=== PATIENT | female | born 1995 | race Two or more races ===

== ENCOUNTER 2016-08-29 02:00 | Emergency (ER) | payer MEDICAID ==
[~2016-08-29] VITALS: Ht 167.6 cm; Wt 63.5 kg
[~2016-08-29 02:00] MED LIST: ACETAMINOPHEN-1 EAC1 ORAL; CIPRO500 MG PO; FLEET ENEMA133 ML RECTAL; IBUPROFEN600 MG ORAL; KEFLEX500 MG ORAL; NKM; NORCO 5/3251 TAB ORAL; RANITIDINE HCL150 MG ORAL; ZOFRAN ODT4 MG ORAL; ZOFRAN8 MG ORAL
[2016-08-29] MEDS ORDERED: NKM (02:17)
[2016-08-29] MEDS ORDERED: Tubing IV Cassette IV ONE ×2 (02:28→05:12)
[2016-08-29] MEDS ORDERED: Morphine Sulfate 4mg/ml Inj IVP ONE ×2 (02:30→03:00)
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
[2016-08-29 02:39] LABS: APPEARANCE,URINE CLEAR; KETONES,URINE NEGATIVE (NEGATIVE); LEUKOCYTE ESTERASE ,URINE NEGATIVE (NEGATIVE); NITRITE,URINE NEGATIVE (NEGATIVE); PH,URINE 6.5 (4.5-8.0); PROTEIN,URINE NEGATIVE (NEGATIVE); UROBILINOGEN,URINE NORMAL MG/DL (0.0-1.0)
[2016-08-29 02:40] LABS: BASOPHILS % (AUTO) 1.3 % (0.0-2.0); EOSINOPHILS % (AUTO) 3.3 % (0.0-3.0); LYMPHOCYTES % (AUTO) 46.4 % (20.0-45.0); MEAN CORPUSCULAR HEMOGLOBIN 32.4 PG (27.0-31.0); MEAN CORPUSCULAR HGB CONC 34.5 G/DL (32.0-36.0); MEAN CORPUSCULAR VOLUME 94 FL (80-99); MEAN PLATELET VOLUME 6.8 FL (6.5-10.1); MONOCYTES % (AUTO) 9.1 % (1.0-10.0); PLATELET COUNT 269 K/UL (150-450); RED BLOOD COUNT 4.25 M/UL (4.20-5.40); WHITE BLOOD COUNT 8.3 K/UL (4.8-10.8)
[2016-08-29 02:55] LABS: ALANINE AMINOTRANSFERASE 15 U/L (3-33); ALBUMIN/GLOBULIN RATIO 1.3 (1.0-2.7); ANION GAP 19 (5-15); ASPARTATE AMINO TRANSFERASE 18 U/L (5-40); CALCIUM 9.5 mg/dL (8.6-10.2); CARBON DIOXIDE 23 mEQ/L (20-30); CHLORIDE 102 mEQ/L (98-107); CREATININE 1.1 mg/dL (0.5-0.9); GLOMERULAR FILTRATION RATE > 60 mL/min (>60); HEMOLYSIS 6; LIPASE 47 U/L (< 60); POTASSIUM 3.6 mEQ/L (3.4-4.9); SODIUM 144 mEQ/L (135-145); TOTAL PROTEIN 7.4 g/dL (6.6-8.7)
[2016-08-29] MEDS ORDERED: HYDROmorphone 1mg/ml Carpuject IVP ONE ×2 (03:30→04:00)
[2016-08-29] MEDS ORDERED: Fleet's Enema 133ml RECTAL ONE (03:30)
[2016-08-29 04:05] VITALS: BP 113/76
[2016-08-29] MEDS ORDERED: Pantoprazole Inj IVP ONE (04:15)
[2016-08-29 04:48] VITALS: BP 93/43
[2016-08-29] MEDS ORDERED: Ketorolac 30mg Inj IV ONE (05:15)
[2016-08-29 05:55] VITALS: BP 107/57
[2016-08-29 05:56] VITALS: BP 107/57
--- NOTE | 2016-08-29 09:39 | Diagnostic Imaging Report ---
Indication: Abdominal pain Technique: Spiral acquisitions obtained through the abdomen and pelvis. No oral contrast utilized, per emergency room physician request No IV contrast utilized, per referring physician request.. Multiplanar reconstructions were generated. Total dose length product 729 mGycm. CTDIvol(s) 13 mGy Comparison: 09/06/2015 Findings: Lack of enteric contrast limits assessment of the GI tract. The appendix is unremarkable. There is equivocal mild diverticulosis, better demonstrated previously. No evidence of diverticulitis diverticulitis. No small bowel distention. No free or loculated intraperitoneal air or fluid is evident. The distal unremarkable. The stomach is distended with food. The duodenum is unremarkable. There is questionable mural gas in the cecum. However, this is probably an artifactual finding, as it is only apparent in the dependent portion and therefore most likely represents air trapped at the interface between the feces and the mucosal surface. Lack of IV contrast limits assessment of solid organs. The gallbladder, bile ducts, liver, pancreas, spleen, adrenals, kidneys are unremarkable. No retroperitoneal or mesenteric mass or adenopathy. The right ovary is prominent, measuring 4 cm in length. No pelvic mass or adenopathy. The included lung bases are clear. The bones are unremarkable. Impression: Doubt acute process. Apparent focal pneumatosis of the cecum is most likely artifactual. Correlate with clinical findings Otherwise essentially unremarkable Very questionable colonic diverticulosis This agrees with the preliminary interpretation provided overnight by [facility] teleradiology service. The CT scanner at [facility] is accredited by the [employer] and the scans are performed using protocols designed to limit radiation exposure to as low as reasonably achievable to attain images of sufficient resolution adequate for diagnostic evaluation.
== END 2016-08-29 06:13 | disposition short-term general hospital (02) ==
LOC: EMR 02:30
DX: R10.12 Left upper quadrant pain (principal); M54.9 Dorsalgia, unspecified; R11.2 Nausea with vomiting, unspecified; F32.9 Major depressive disorder, single episode, unspecified
CPT/HCPCS: 36415; 74176; 80053; 81003; 81025; 83690; 85025; 96360; 96374; 96375; 99285; C9113; J1170; J1885; J2270; J2405

== ENCOUNTER 2016-09-03 22:24 | Emergency (ER) | payer MEDICAID ==
[~2016-09-03] VITALS: Ht 165.1 cm; Wt 61.2 kg
[2016-09-03 22:43] VITALS: BP 126/73
[2016-09-03] MEDS ORDERED: Dicyclomine HCl 10mg/5ml oral soln ORAL ONE (23:00)
[2016-09-03] MEDS ORDERED: Lidocaine 2% Visc 15ml soln ORAL ONE (23:00)
[2016-09-03 23:30] VITALS: BP_SYST 114; BP_SYST 115; BP_SYST 122; BP_DIAS 71; BP_DIAS 82; BP_DIAS 83
[2016-09-03 23:56] LABS: APPEARANCE,URINE CLEAR; KETONES,URINE NEGATIVE (NEGATIVE); LEUKOCYTE ESTERASE ,URINE 1+ (NEGATIVE); NITRITE,URINE POSITIVE (NEGATIVE); PH,URINE 7 (4.5-8.0); PROTEIN,URINE NEGATIVE (NEGATIVE); UROBILINOGEN,URINE NORMAL MG/DL (0.0-1.0)
[2016-09-04 00:01] LABS: BACTERIA,URINE MANY /HPF; SQUAMOUS EPITHELIAL CELL,UR MODERATE /LPF (NONE/OCC)
[2016-09-04 00:27] LABS: BASOPHILS % (AUTO) 0.8 % (0.0-2.0); EOSINOPHILS % (AUTO) 0.6 % (0.0-3.0); LYMPHOCYTES % (AUTO) 14.8 % (20.0-45.0); MEAN CORPUSCULAR HEMOGLOBIN 31.9 PG (27.0-31.0); MEAN CORPUSCULAR HGB CONC 32.4 G/DL (32.0-36.0); MEAN CORPUSCULAR VOLUME 99 FL (80-99); MEAN PLATELET VOLUME 6.6 FL (6.5-10.1); MONOCYTES % (AUTO) 9.9 % (1.0-10.0); PLATELET COUNT 211 K/UL (150-450); RED CELL DISTRIBUTION WIDTH 11.9 % (11.6-14.8); WHITE BLOOD COUNT 6.7 K/UL (4.8-10.8)
[2016-09-04 00:34] LABS: TROPONIN I < 0.30 ng/mL (<=0.30)
[2016-09-04 00:37] LABS: ALANINE AMINOTRANSFERASE 11 U/L (3-33); ALBUMIN/GLOBULIN RATIO 1.5 (1.0-2.7); ANION GAP 15 (5-15); ASPARTATE AMINO TRANSFERASE 16 U/L (5-40); CALCIUM 9.4 mg/dL (8.6-10.2); CARBON DIOXIDE 26 mEQ/L (20-30); CHLORIDE 96 mEQ/L (98-107); CREATININE 0.8 mg/dL (0.5-0.9); GLOMERULAR FILTRATION RATE > 60 mL/min (>60); HEMOLYSIS 1; POTASSIUM 4.3 mEQ/L (3.4-4.9); SODIUM 137 mEQ/L (135-145); TOTAL PROTEIN 7.6 g/dL (6.6-8.7)
[2016-09-04 00:47] LABS: CKMB < 1.5 ng/mL (< 3.8)
[2016-09-04 01:34] VITALS: BP 115/46
[2016-09-04] MEDS ORDERED: cefTRIAXone 1 GM in NS 55 ML IVPB ONE (01:45)
[2016-09-04] MEDS ORDERED: Metoclopramide 10mg/2ml Inj IVP ONE (02:00)
[2016-09-04] MEDS ORDERED: KEFLEX500 MG ORAL (02:41)
[2016-09-04] MEDS ORDERED: IBUPROFEN600 MG ORAL (02:41)
[2016-09-04 02:50] VITALS: BP 115/46
--- NOTE | 2016-09-04 14:26 | Diagnostic Imaging Report ---
Indication: SOB Technique: One view of the chest Comparison: September 06, 2015 Findings: Lungs and pleural spaces are clear. Heart size is normal. No significant change Impression: No acute process
--- NOTE | 2016-09-04 20:13 | Emergency Room Report ---
History of Present Illness General Chief Complaint: Headache Source: Patient Present Illness HPI Patient is a 21-year-old female who presented after increased headache and generalized pain. Patient recently been seen and treated at [facility] for episode of colitis. Patient had a not been taking any medications apart from Zofran. She denied any neck stiffness. She had subjective fever. She denied any cough or sore throat. She had been having some generalized abdominal pain. She reported having increased dysuria. She stated this felt similar to prior urinary tract infections. Allergies: Coded Allergies: No Known Allergies (Unverified , 12/28/12) Patient History Past Medical History: see triage record Last Menstrual Period: 08/02/16 Now: No Reviewed Nursing Documentation: PMH: Agreed, PSxH: Agreed Nursing Documentation-PMH Hx Neurological Problems: No Review of Systems All Other Systems: negative except mentioned in HPI Physical Exam Vital Signs Date Time Temp Pulse Resp B/P Pulse Ox O2 Delivery O2 Flow Rate FiO2 09/03/16 22:33 100.0 120 17 126/73 99 Room Air Sp02 EP Interpretation: reviewed, normal General Appearance: normal inspection, well appearing, no apparent distress, alert, GCS 15 Head: atraumatic ENT: normal ENT inspection, hearing grossly normal, normal voice Neck: normal inspection, full range of motion, supple, no bony tend Respiratory: normal inspection, lungs clear, normal breath sounds, no respiratory distress, no retraction, no wheezing Cardiovascular #1: regular rate, rhythm, no edema Gastrointestinal: normal inspection, normal bowel sounds, non tender, soft, no guarding, no hernia Genitourinary: no CVA tenderness Musculoskeletal: normal inspection, back normal, normal range of motion Neurologic: normal inspection, alert, oriented x3, responsive, online advertising analyst III-XII nml as tested, speech normal Psychiatric: normal inspection, judgement/insight normal, mood/affect normal Skin: normal inspection, normal color, no rash Medical Decision Making Diagnostic Impression: Primary Impression: Urinary tract infection ER Course Patient presented for dysuria. Differential diagnosis included was not limited to appendicitis, urinary tract infection, pelvic inflammatory disease, urethritis, herpes among others. Patient appears to have benign abdominal exam. Patient was given ibuprofen for fever. She was given Reglan for nausea and headache. Patient started on IV fluids as well as given antibiotics. Laboratory testing was notable for normal white blood count. The urinalysis showed evidence of mild urinary tract infection. The patient is advised to follow up with primary care doctor in 1-2 days. Patient is advised to return if any worsening condition or if any changes in status that are concerning. Labs Test 09/03/16 23:11 09/04/16 00:00 Urine Color Pale yellow Urine Appearance Clear Urine pH 7 (4.5-8.0) Urine Specific [place] 1.010 (1.005-1.035) Urine Protein Negative (NEGATIVE) Urine Glucose (UA) Negative (NEGATIVE) Urine Ketones Negative (NEGATIVE) Urine Occult Blood 2+ (NEGATIVE) Urine Nitrite Positive (NEGATIVE) Urine Bilirubin Negative (NEGATIVE) Urine Urobilinogen Normal MG/DL (0.0-1.0) Urine Leukocyte Esterase 1+ (NEGATIVE) Urine RBC 2-4 /HPF (0 - 2) Urine WBC 2-4 /HPF (0 - 2) Urine Squamous Epithelial Cells Moderate /LPF (NONE/OCC) Urine Bacteria Many /HPF (NONE) Urine HCG, Qualitative Negative White Blood Count 6.7 K/UL (4.8-10.8) Red Blood Count 3.80 M/UL (4.20-5.40) Hemoglobin 12.1 G/DL (12.0-16.0) Hematocrit 37.5 % (37.0-47.0) Mean Corpuscular Volume 99 FL (80-99) Mean Corpuscular Hemoglobin 31.9 PG (27.0-31.0) Mean Corpuscular Hemoglobin Concent 32.4 G/DL (32.0-36.0) Red Cell Distribution Width 11.9 % (11.6-14.8) Platelet Count 211 K/UL (150-450) Mean Platelet Volume 6.6 FL (6.5-10.1) Neutrophils (%) (Auto) 74.0 % (45.0-75.0) Lymphocytes (%) (Auto) 14.8 % (20.0-45.0) Monocytes (%) (Auto) 9.9 % (1.0-10.0) Eosinophils (%) (Auto) 0.6 % (0.0-3.0) Basophils (%) (Auto) 0.8 % (0.0-2.0) Sodium Level 137 mEQ/L (135-145) Potassium Level 4.3 mEQ/L (3.4-4.9) Chloride Level 96 mEQ/L (98-107) Carbon Dioxide Level 26 mEQ/L (20-30) Anion Gap 15 (5-15) Blood Urea Nitrogen 19 mg/dL (7-23) Creatinine 0.8 mg/dL (0.5-0.9) Estimat Glomerular Filtration Rate > 60 mL/min (>60) Glucose Level 111 mg/dL (74-106) Lactic Acid Level 1.10 mmol/L (0.66-2.22) Calcium Level 9.4 mg/dL (8.6-10.2) Total Bilirubin 0.5 mg/dL (0.0-1.2) Aspartate Amino Transf (AST/SGOT) 16 U/L (5-40) Alanine Aminotransferase (ALT/SGPT) 11 U/L (3-33) Alkaline Phosphatase 48 U/L (35-104) Total Creatine Kinase 79 U/L (26-140) Creatine Kinase MB < 1.5 ng/mL (< 3.8) Creatine Kinase MB Relative Index Troponin I < 0.30 ng/mL (<=0.30) Total Protein 7.6 g/dL (6.6-8.7) Albumin 4.6 g/dL (3.5-5.2) Globulin 3.0 g/dL Albumin/Globulin Ratio 1.5 (1.0-2.7) Last Vital Signs Date Time Temp Pulse Resp B/P Pulse Ox O2 Delivery O2 Flow Rate FiO2 09/04/16 02:50 100.5 116 17 115/46 98 Room Air 117 122 Status: improved Disposition: HOME, SELF-CARE Condition: Stable Scripts Ibuprofen* (MOTRIN*) 600 Mg Tablet 600 MG ORAL Q8H Y for For Pain, #30 TAB 0 Refills Prov: Percy Brady 09/04/16 Cephalexin* (KEFLEX*) 500 Mg Capsule 500 MG ORAL Q6H, #28 CAP 0 Refills Prov: Percy Brady 09/04/16 Patient Instructions: Urinary Tract Infection, [id number] Percy Brady Sep 04, 2016 20:13
--- NOTE | 2016-09-04 23:18 | Cardiology Report ---
APPROVED REPORT EKG Measurement Heart [id number] Sinus tachycardia Otherwise normal ECG
== END 2016-09-04 02:50 | disposition home or self-care (01) ==
LOC: EMR 22:57
DX: N39.0 Urinary tract infection, site not specified (principal); R51 Headache; R50.9 Fever, unspecified
CPT/HCPCS: 36415; 71010; 80053; 81003; 81025; 82550; 82553; 83605; 84484; 85025; 87086; 87181; 93005; 96360; 96374; 96375; 99284; J0696; J2765

== ENCOUNTER 2017-06-02 18:13 | Emergency (ER) | payer OTHER, MEDICAID ==
[~2017-06-02] VITALS: Ht 165.1 cm; Wt 59.0 kg
[2017-06-02] MEDS ORDERED: Ketorolac 30mg Inj IV ONE (18:30)
[2017-06-02] MEDS ORDERED: Morphine Sulfate 2mg/ml Inj IVP ONE (19:15)
[2017-06-02 19:30] LABS: APPEARANCE,URINE CLEAR; BILIRUBIN, URINE NEGATIVE (NEGATIVE); COLOR,URINE PALE YELLOW; GLUCOSE, URINE (UA) NEGATIVE (NEGATIVE); KETONES,URINE 1+ (NEGATIVE); LEUKOCYTE ESTERASE ,URINE NEGATIVE (NEGATIVE); NITRITE,URINE NEGATIVE (NEGATIVE); PH,URINE 7 (4.5-8.0); PROTEIN,URINE NEGATIVE (NEGATIVE); UROBILINOGEN,URINE NORMAL MG/DL (0.0-1.0)
[2017-06-02 19:41] LABS: ANION GAP 8 mmol/L (5-15); BLOOD UREA NITROGEN 17 mg/dL (7-18); CALCIUM 8.8 MG/DL (8.5-10.1); CARBON DIOXIDE 28 MMOL/L (21-32); CHLORIDE 103 MMOL/L (98-107); CREATININE 0.7 MG/DL (0.55-1.30); POTASSIUM 3.9 MMOL/L (3.5-5.1); SODIUM 139 MMOL/L (136-145)
[2017-06-02 19:45] LABS: ALANINE AMINOTRANSFERASE 13 U/L (12-78); ALBUMIN 4.7 G/DL (3.4-5.0); ALBUMIN/GLOBULIN RATIO 1.2 (1.0-2.7); ALKALINE PHOSPHATASE 47 U/L (46-116); ASPARTATE AMINO TRANSFERASE 12 U/L (15-37); BILIRUBIN,TOTAL 0.5 MG/DL (0.2-1.0)
[2017-06-02 19:49] LABS: HEMATOCRIT 40.7 % (37.0-47.0); HEMOGLOBIN 13.9 G/DL (12.0-16.0); LYMPHOCYTES % (AUTO) 10.5 % (20.0-45.0); MEAN CORPUSCULAR VOLUME 94 FL (80-99); MONOCYTES % (AUTO) 11.8 % (1.0-10.0); NEUTROPHILS % (AUTO) 75.7 % (45.0-75.0); PLATELET COUNT 251 K/UL (150-450); RED BLOOD COUNT 4.35 M/UL (4.20-5.40); RED CELL DISTRIBUTION WIDTH 10.7 % (11.6-14.8)
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
[2017-06-02] MEDS ORDERED: Morphine Sulfate 4mg/ml Inj IVP ONE (20:15)
[2017-06-02 21:38] VITALS: BP 117/75
--- NOTE | 2017-06-03 19:58 | Diagnostic Imaging Report ---
Indication: Abdominal pain Technique: CT of the abdomen and pelvis utilizing automated exposure control without intravenous or oral contrast. CT dose: Total DLP 633.43 mGycm; CTDI vol 12.33 mGy Comparison: 08/29/2016 Findings: Please note that evaluation of the abdominal and pelvic viscera is limited without the use of intravenous and oral contrast. Within these limitations, the following observations are made: There is minimal dependent atelectatic change in the peripheral right lower lobe. Remainder of the imaged lung bases are clear. Heart size is within normal limits. There is no pericardial effusion. Noncontrast evaluation of the liver, spleen, adrenal glands and pancreas is grossly unremarkable. There is no evidence of urinary tract stones or hydronephrosis bilaterally. Bladder is unremarkable in appearance. Probable cystic right adnexa. Fluid noted within the endometrial canal, considered physiologic in a reproductive age female. There is no bowel obstruction. No free intraperitoneal air or fluid. Appendix is retrocecal in location. Air is noted within the appendiceal lumen. There is no periappendiceal fat stranding. There is a tiny fat-containing umbilical hernia. There are some prominent mesenteric lymph nodes in the right lower quadrant. Abdominal aorta is normal in caliber. No acute osseous abnormality is seen. Impression: Limited exam without intravenous or oral contrast. Within these limitations: * Multiple prominent mesenteric lymph nodes noted in the right lower quadrant. Findings may be reflective of a mesenteric adenitis in the appropriate clinical setting. No evidence of appendicitis. Additional findings as above. This corresponds with the [facility] preliminary report. The CT scanner at [facility] is accredited by the [employer] and the scans are performed using protocols designed to limit radiation exposure to as low as reasonably achievable to attain images of sufficient resolution adequate for diagnostic evaluation.
== END 2017-06-02 21:45 | disposition home or self-care (01) ==
LOC: EMR 20:08
DX: R10.9 Unspecified abdominal pain (principal); Z87.442 Personal history of urinary calculi; Z98.890 Other specified postprocedural states
CPT/HCPCS: 36415; 74176; 80053; 81003; 81025; 83690; 85025; 96361; 96374; 96375; 96376; 99284; J1885; J2270; J2405

== ENCOUNTER 2017-08-08 00:39 | Emergency (ER) | payer MEDICAID, OTHER ==
[~2017-08-08] VITALS: Ht 165.1 cm; Wt 63.5 kg
[2017-08-08] MEDS ORDERED: HYDROmorphone 1mg/ml Carpuject IVP ONE ×2 (01:00→03:30)
[2017-08-08] MEDS ORDERED: cefTRIAXone 1 GM in NS 55 ML IVPB ONE (01:00)
[2017-08-08] MEDS ORDERED: Acetaminophen 500mg (ES) tab ORAL ONE (01:00)
[2017-08-08 01:15] LABS: APPEARANCE,URINE SLIGHTLY CLOUDY; BILIRUBIN, URINE NEGATIVE (NEGATIVE); COLOR,URINE PALE YELLOW; GLUCOSE, URINE (UA) 3+ (NEGATIVE); KETONES,URINE NEGATIVE (NEGATIVE); LEUKOCYTE ESTERASE ,URINE 1+ (NEGATIVE); NITRITE,URINE NEGATIVE (NEGATIVE); PH,URINE 8 (4.5-8.0); PROTEIN,URINE 1+ (NEGATIVE); UROBILINOGEN,URINE NORMAL MG/DL (0.0-1.0)
[2017-08-08 01:31] LABS: BASOPHILS % (AUTO) 0.5 % (0.0-2.0); EOSINOPHILS % (AUTO) 0.1 % (0.0-3.0); HEMATOCRIT 34.2 % (37.0-47.0); HEMOGLOBIN 12.2 G/DL (12.0-16.0); LYMPHOCYTES % (AUTO) 5.5 % (20.0-45.0); MEAN CORPUSCULAR VOLUME 94 FL (80-99); MONOCYTES % (AUTO) 9.7 % (1.0-10.0); NEUTROPHILS % (AUTO) 84.2 % (45.0-75.0); PLATELET COUNT 186 K/UL (150-450); RED BLOOD COUNT 3.64 M/UL (4.20-5.40); RED CELL DISTRIBUTION WIDTH 10.2 % (11.6-14.8); WHITE BLOOD COUNT 9.3 K/UL (4.8-10.8)
[2017-08-08 01:41] LABS: ANION GAP 8 mmol/L (5-15); BLOOD UREA NITROGEN 6 mg/dL (7-18); CALCIUM 8.6 MG/DL (8.5-10.1); CARBON DIOXIDE 25 MMOL/L (21-32); CHLORIDE 105 MMOL/L (98-107); CREATININE 0.9 MG/DL (0.55-1.30); POTASSIUM 3.3 MMOL/L (3.5-5.1); SODIUM 138 MMOL/L (136-145)
[2017-08-08 01:47] VITALS: BP 118/71
--- NOTE | 2017-08-08 02:08 | Emergency Room Report ---
History of Present Illness General Chief Complaint: Back Pain-No Injury Source: Patient Present Illness HPI This a 22-year-old female with a history of UTI/polynephritis. She presents with chief complaint of right flank pain and fever. She also has urinary frequency and urgency. She had the same symptoms this morning and went to [place]. She was diagnosed with a urinary tract infection. Blood work was done. She'll receive a dose of antibiotics and discharged on antibiotics. She came back tonight because fever went up. Also with severe pain 10 out of 10. No nausea no vomiting. Allergies: Coded Allergies: TRAMADOL (Verified Allergy, Unknown, 08/08/17) Patient History Past Medical History: see triage record, old chart reviewed Past Surgical History: other Pertinent Family History: none Social History: Denies: smoking Last Menstrual Period: Jul 18 Now: No Immunizations: other Reviewed Nursing Documentation: PMH: Agreed, PSxH: Agreed Nursing Documentation-PMH Hx Neurological Problems: No Review of Systems Constitutional: Reports: fever Eye: Denies: eye pain, blurred vision ENT: Denies: ear pain, nose congestion, throat swelling Respiratory: Denies: cough, shortness of breath Cardiovascular: Denies: chest pain, palpitations Gastrointestinal: Denies: abdominal pain, diarrhea, nausea, vomiting Genitourinary: Reports: dysuria, frequency Musculoskeletal: Reports: back pain, Denies: joint pain Skin: Denies: rash Neurological: Reports: headache, Denies: numbness Endocrine: Denies: increased thirst, increased urine Hematologic/Lymphatic: Denies: easy bruising All Other Systems: negative except mentioned in HPI Physical Exam Vital Signs Date Time Temp Pulse Resp B/P (MAP) Pulse Ox O2 Delivery O2 Flow Rate FiO2 08/08/17 00:42 101.6 128 18 115/67 99 Room Air 101.7 vitals with fever Sp02 EP Interpretation: reviewed, normal General Appearance: no apparent distress, alert, other - Ill-appearing Head: normocephalic, atraumatic Eyes: bilateral eye PERRL, bilateral eye EOMI ENT: hearing grossly normal, normal pharynx Neck: full range of motion, supple, no meningismus Respiratory: chest non-tender, lungs clear, normal breath sounds Cardiovascular #1: regular rate, rhythm, no murmur, tachycardia Gastrointestinal: normal bowel sounds, non tender, no mass, no organomegaly, no bruit, non-distended Genitourinary: CVA tenderness (R) Musculoskeletal: back normal, gait/station normal, normal range of motion Neurologic: alert, oriented x3 Psychiatric: mood/affect normal Skin: warm/dry Medical Decision Making Diagnostic Impression: Primary Impression: Pyelonephritis Additional Impression: Sepsis Qualified Codes: A41.9 - Sepsis, unspecified organism ER Course This patient presents with pyelonephritis and early sepsis/SIRS response. Because of her continual pain, I did a CT scan to rule out retained stone. There is no evidence of any stone. Because she failed outpatient antibiotics, will transfer to [place] via [facility]. I discussed the case with Dr. Castelan, who accepted patient for transfer. . Laboratory Tests Test 08/08/17 00:48 08/08/17 01:18 08/08/17 02:10 Urine Color Pale yellow Urine Appearance Slightly cloudy Urine pH 8 (4.5-8.0) Urine Specific [place] 1.010 (1.005-1.035) Urine Protein 1+ (NEGATIVE) H Urine Glucose (UA) 3+ (NEGATIVE) H Urine Ketones Negative (NEGATIVE) Urine Occult Blood 2+ (NEGATIVE) H Urine Nitrite Negative (NEGATIVE) Urine Bilirubin Negative (NEGATIVE) Urine Urobilinogen Normal MG/DL (0.0-1.0) Urine Leukocyte Esterase 1+ (NEGATIVE) H Urine RBC 2-4 /HPF (0 - 2) H Urine WBC 5-10 /HPF (0 - 2) H Urine Squamous Epithelial Cells Many /LPF (NONE/OCC) H Urine Bacteria Moderate /HPF (NONE) H Urine HCG, Qualitative Negative White Blood Count 9.3 K/UL (4.8-10.8) Red Blood Count 3.64 M/UL (4.20-5.40) L Hemoglobin 12.2 G/DL (12.0-16.0) Hematocrit 34.2 % (37.0-47.0) L Mean Corpuscular Volume 94 FL (80-99) Mean Corpuscular Hemoglobin 33.5 PG (27.0-31.0) H Mean Corpuscular Hemoglobin Concent 35.7 G/DL (32.0-36.0) Red Cell Distribution Width 10.2 % (11.6-14.8) L Platelet Count 186 K/UL (150-450) Mean Platelet Volume 6.8 FL (6.5-10.1) Neutrophils (%) (Auto) 84.2 % (45.0-75.0) H Lymphocytes (%) (Auto) 5.5 % (20.0-45.0) L Monocytes (%) (Auto) 9.7 % (1.0-10.0) Eosinophils (%) (Auto) 0.1 % (0.0-3.0) Basophils (%) (Auto) 0.5 % (0.0-2.0) Sodium Level 138 MMOL/L (136-145) Potassium Level 3.3 MMOL/L (3.5-5.1) L Chloride Level 105 MMOL/L (98-107) Carbon Dioxide Level 25 MMOL/L (21-32) Anion Gap 8 mmol/L (5-15) Blood Urea Nitrogen 6 mg/dL (7-18) L Creatinine 0.9 MG/DL (0.55-1.30) Estimat Glomerular Filtration Rate > 60 mL/min (>60) Glucose Level 161 MG/DL (74-106) H Calcium Level 8.6 MG/DL (8.5-10.1) Lactic Acid Level 1.50 mmol/L (0.66-2.22) Lab Results Impression labs unremarkable CT/MRI/US Diagnostic Results CT/MRI/US Diagnostic Results : Imaging Test Ordered: CT abdomen and pelvis Impression CT read by radiologist. CT done with IV contrast. Mild right hydroureteral ureteral nephrosis with mild heterogeneous striated enhancement. Question infection/pyelonephritis, recently passed stone. Last Vital Signs Date Time Temp Pulse Resp B/P (MAP) Pulse Ox O2 Delivery O2 Flow Rate FiO2 08/08/17 01:47 120 20 118/71 100 Room Air 08/08/17 01:47 101.6 Status: improved Disposition: XFER SHT-TRM HOSP Condition: Stable MARY ELLEN ZARCO M.D. Aug 08, 2017 02:08
[2017-08-08 03:08] VITALS: BP 94/54
[2017-08-08 04:44] VITALS: BP 111/71
[2017-08-08 05:24] VITALS: BP 111/71
--- NOTE | 2017-08-08 10:48 | Diagnostic Imaging Report ---
Clinical Indication: Abdominal pain Technique: No oral contrast utilized, per emergency room physician request IV administration nonionic contrast. Venous phase spiral acquisition obtained through the abdomen and pelvis. Multiplanar reconstructions were generated. Total dose length product 578.1 mGycm. CTDIvol(s) 10.95 mGy. Dose reduction achieved using automated exposure control Comparison: 06/02/2017 noncontrast study Findings: There is somewhat heterogeneous attenuation of the right kidney and infiltration of the perinephric fat. There is mild ectasia of the proximal ureter and of the renal pelvis. There is mild urothelial enhancement. No renal or ureteral calculi demonstrated. More focal areas of hypoattenuation are seen in the lower pole of the right kidney. The left kidney is unremarkable. The bladder is unremarkable. The liver, gallbladder, bile ducts, pancreas, spleen, adrenals are unremarkable. Prominent retroperitoneal lymph nodes appear similar to the prior exam. There is what appears to be a collapsed follicle in the right ovary as well as some surrounding free fluid. The uterus and left ovary appear unremarkable. No pelvic mass or adenopathy. The appendix is normal. No evidence of diverticulosis or diverticulitis. No small bowel distention. No free intraperitoneal air. Distal esophagus, stomach, duodenum are unremarkable. The included lung bases are clear. The bones are unremarkable Impression: Abnormal right kidney, with heterogeneous attenuation, and perinephric fat stranding, urothelial enhancement. Findings most likely represent pyelonephritis. More focal areas of low-attenuation in the lower pole the right kidney most likely represent focal areas of nephritis. There is mild ectasia to the proximal ureter and right renal pelvis without angela hydronephrosis. Most likely due to the above, recent stone passage also a possibility No other acute or significant abnormality otherwise Evidence of recently collapsed right ovarian follicle with small amount of free pelvic fluid This agrees with the preliminary interpretation provided overnight by [employer] telerad[employer] service. The CT scanner at [facility] is accredited by the [employer] and the scans are performed using protocols designed to limit radiation exposure to as low as reasonably achievable to attain images of sufficient resolution adequate for diagnostic evaluation.
== END 2017-08-08 05:24 | disposition short-term general hospital (02) ==
LOC: EMR 03:00
DX: N12 Tubulo-interstitial nephritis, not specified as acute or chronic (principal); A41.9 Sepsis, unspecified organism; Z88.6 Allergy status to analgesic agent
CPT/HCPCS: 36415; 74177; 80048; 81001; 81025; 83605; 85025; 87040; 87086; 96374; 96375; 99285; J0696; J1170; J2405; Q9967

== ENCOUNTER 2018-03-07 07:07 | Emergency (ER) | payer MEDICAID ==
[~2018-03-07] VITALS: Ht 162.6 cm; Wt 61.2 kg
[2018-03-07] MEDS ORDERED: Morphine Sulfate 4mg/ml Inj (IV USE ONLY) IVP ONE (07:30)
[2018-03-07] MEDS ORDERED: DiphenhydrAMINE 50mg/ml Inj IVP ONE (07:30)
[2018-03-07] MEDS ORDERED: Ketorolac 30mg Inj IV ONE (07:30)
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
[2018-03-07 08:01] VITALS: BP 107/69
[2018-03-07 08:52] VITALS: BP 107/69
== END 2018-03-07 08:52 | disposition home or self-care (01) ==
LOC: EMR 07:40
DX: G44.209 Tension-type headache, unspecified, not intractable (principal); F10.129 Alcohol abuse with intoxication, unspecified; E86.0 Dehydration
CPT/HCPCS: 96361; 96374; 96375; 99284; J1200; J1885; J2270; J2405

== ENCOUNTER 2020-06-13 08:52 | Emergency (ER) | payer MEDICAID ==
[~2020-06-13] VITALS: Ht 165.1 cm; Wt 65.8 kg
[~2020-06-13 08:52] MED LIST changes: +NITROFURANTOIN100 M2 ORAL; +ZOFRAN4 M3 ORAL
[2020-06-13] MEDS ORDERED: Ketorolac 30mg Inj IV ONE (09:15)
--- NOTE | 2020-06-13 09:15 | NUR ---
ED Nurse Note: Pt ambulated to ED d/t bilateral flank pain accompanied by dysuria, nausea/vomiting. pt is aox4, crying in pain, per pt, she stated she's frequently experiencing kidney infections, pt's VSS, on RA, afebrile on triage. Placed on bed.
[2020-06-13 09:20] VITALS: BP 204/95
--- NOTE | 2020-06-13 09:30 | NUR ---
ED Nurse Note: labs sent down.
--- NOTE | 2020-06-13 09:38 | Emergency Room Report ---
History of Present Illness General Chief Complaint: Back Pain-No Injury Source: Patient Present Illness HPI Disclaimer: Please note that this report is being documented using DRAGON technology. This can lead to erroneous entry secondary to incorrect interpretation by the dictating instrument. HPI: 24-year-old female presents for evaluation of flank pain. Patient has history of UTI, pyelonephritis and kidney stones. Prior lithotripsy many years ago. Patient reports 3 days dysuria and foul smell. Denies fever or chills. Reports dry heaving but denies diarrhea. Denies chest pain palpitations or cough. States this feels similar to prior episodes of pyelonephritis. States she has been treated with Keflex successfully in the past. PMH: Pyelonephritis, kidney stones PSH: Lithotripsy Allergies: Tramadol Social Hx: Reviewed Allergies: Coded Allergies: TRAMADOL (Verified Allergy, Unknown, 08/08/17) COVID-19 Screening Contact w/high risk pt: No Experienced COVID-19 symptoms?: Yes COVID-19 Testing performed [employer] RELATIONS: Yes COVID-19 Screening: Negative COVID-19 COVID-19 Testing Source: [facility] Patient History Last Menstrual Period: last week Now: No Nursing Documentation-PMH Past Medical History: No History, Except For Hx Neurological Problems: No Review of Systems All Other Systems: negative except mentioned in HPI Physical Exam Vital Signs Date Time Temp Pulse Resp B/P (MAP) Pulse Ox O2 Delivery O2 Flow Rate FiO2 06/13/20 09:00 98.8 132 24 204/95 (131) 97 Room Air General: Awake and alert, crying, appears uncomfortable HEENT: NC/AT. EOMI. Cardiovascular: Tachycardic Resp: Normal work of breathing. No cough, wheezing or crackles appreciated Abdomen: Abdomen is soft, nondistended. Mild suprapubic tenderness. Left-sided flank tenderness with percussion. No tenderness on the right. Skin: Intact. No abrasions, laceration or rash over the exposed skin MSK: Normal tone and bulk. Moving all extremities. No obvious deformity. Neuro: Awake and alert. Mentating appropriately. Medical Decision Making Diagnostic Impression: Primary Impression: Pyelonephritis ER Course 24-year-old female presents for evaluation of flank pain. Concern for pyelonephritis, nephrolithiasis, UTI among others. Labs were obtained and patient was given IV fluids, antiemetics, pain medication including opiates over persistent pain. Urinalysis consistent with acute urinary tract infection. Blood work otherwise unremarkable showing normal renal function. CT scan does not show an obvious obstructing kidney stone. Fatty liver demonstrated as is a intrarenal stone. Small nodules as seen on prior exam. Her discomfort is likely pyelonephritis. Will treat with ciprofloxacin. Offered to give a dose of IV antibiotics in the ED but patient declined. Afebrile, otherwise well-ap pearing. Stable for outpatient follow-up. Instructed to return with new or worsening symptoms. Laboratory Tests Test 06/13/20 09:10 06/13/20 09:19 Urine Color Yellow Urine Appearance Cloudy Urine pH 5 (4.5-8.0) Urine Specific [place] 1.025 (1.005-1.035) Urine Protein 1+ (NEGATIVE) H Urine Glucose (UA) Negative (NEGATIVE) Urine Ketones 1+ (NEGATIVE) H Urine Blood 1+ (NEGATIVE) H Urine Nitrite Negative (NEGATIVE) Urine Bilirubin Negative (NEGATIVE) Urine Urobilinogen Normal MG/DL (0.0-1.0) Urine Leukocyte Esterase 1+ (NEGATIVE) H Urine RBC 0-2 /HPF (0 - 2) Urine WBC 5-10 /HPF (0 - 2) H Urine Squamous Epithelial Cells Few /LPF (NONE/OCC) Urine Bacteria Many /HPF (NONE) H Urine HCG, Qualitative Negative (NEGATIVE) White Blood Count 7.5 K/UL (4.8-10.8) Red Blood Count 4.68 M/UL (4.20-5.40) Hemoglobin 14.8 G/DL (12.0-16.0) Hematocrit 41.7 % (37.0-47.0) Mean Corpuscular Volume 89 FL (80-99) Mean Corpuscular Hemoglobin 31.6 PG (27.0-31.0) H Mean Corpuscular Hemoglobin Concent 35.5 G/DL (32.0-36.0) Red Cell Distribution Width 13.6 % (11.6-14.8) Platelet Count 381 K/UL (150-450) Mean Platelet Volume 6.1 FL (6.5-10.1) L Neutrophils (%) (Auto) 54.3 % (45.0-75.0) Lymphocytes (%) (Auto) 35.9 % (20.0-45.0) Monocytes (%) (Auto) 7.1 % (1.0-10.0) Eosinophils (%) (Auto) 1.5 % (0.0-3.0) Basophils (%) (Auto) 1.3 % (0.0-2.0) Sodium Level 138 MMOL/L (136-145) Potassium Level 3.5 MMOL/L (3.5-5.1) Chloride Level 101 MMOL/L (98-107) Carbon Dioxide Level 28 MMOL/L (21-32) Anion Gap 9 mmol/L (5-15) Blood Urea Nitrogen 17 mg/dL (7-18) Creatinine 0.8 MG/DL (0.55-1.30) Estimated Glomerular Filtration Rate > 60 mL/min (>60) Glucose Level 123 MG/DL (74-106) H Calcium Level 9.7 MG/DL (8.5-10.1) Total Bilirubin 0.5 MG/DL (0.2-1.0) Aspartate Amino Transferase (AST) 43 U/L (15-37) H Alanine Aminotransferase (ALT) 83 U/L (12-78) H Alkaline Phosphatase 98 U/L (46-116) Total Protein 9.0 G/DL (6.4-8.2) H Albumin 4.5 G/DL (3.4-5.0) Globulin 4.5 g/dL Albumin/Globulin Ratio 1.0 (1.0-2.7) Lipase 140 U/L (73-393) Last Vital Signs Date Time Temp Pulse Resp B/P (MAP) Pulse Ox O2 Delivery O2 Flow Rate FiO2 06/13/20 09:20 98.8 24 204/95 97 Room Air 06/13/20 09:00 132 Disposition: HOME, SELF-CARE Condition: Stable Scripts Ciprofloxacin Hcl* (CIPROFLOXACIN HCL*) 500 Mg Tablet 500 MG ORAL Q12H for 7 Days, #14 TAB 0 Refills Prov: Luis Vargas MD 06/13/20 Referrals: [facility] (PCP) Luis Vargas MD Jun 13, 2020 09:38
[2020-06-13 09:42] LABS: BASOPHILS % (AUTO) 1.3 % (0.0-2.0); EOSINOPHILS % (AUTO) 1.5 % (0.0-3.0); HEMATOCRIT 41.7 % (37.0-47.0); HEMOGLOBIN 14.8 G/DL (12.0-16.0); LYMPHOCYTES % (AUTO) 35.9 % (20.0-45.0); MEAN CORPUSCULAR VOLUME 89 FL (80-99); MONOCYTES % (AUTO) 7.1 % (1.0-10.0); NEUTROPHILS % (AUTO) 54.3 % (45.0-75.0); PLATELET COUNT 381 K/UL (150-450); RED BLOOD COUNT 4.68 M/UL (4.20-5.40); RED CELL DISTRIBUTION WIDTH 13.6 % (11.6-14.8); WHITE BLOOD COUNT 7.5 K/UL (4.8-10.8)
[2020-06-13 09:45] LABS: APPEARANCE,URINE CLOUDY; BILIRUBIN, URINE NEGATIVE (NEGATIVE); GLUCOSE, URINE (UA) NEGATIVE (NEGATIVE); KETONES,URINE 1+ (NEGATIVE); LEUKOCYTE ESTERASE ,URINE 1+ (NEGATIVE); NITRITE,URINE NEGATIVE (NEGATIVE); PH,URINE 5 (4.5-8.0); PROTEIN,URINE 1+ (NEGATIVE); UROBILINOGEN,URINE NORMAL MG/DL (0.0-1.0)
[2020-06-13] MEDS ORDERED: Morphine Sulfate 2mg/ml Inj(IV/IM USE ONLY) IM ONE (09:45)
[2020-06-13 09:58] LABS: ANION GAP 9 mmol/L (5-15); BLOOD UREA NITROGEN 17 mg/dL (7-18); CALCIUM 9.7 MG/DL (8.5-10.1); CARBON DIOXIDE 28 MMOL/L (21-32); CHLORIDE 101 MMOL/L (98-107); CREATININE 0.8 MG/DL (0.55-1.30); POTASSIUM 3.5 MMOL/L (3.5-5.1); SODIUM 138 MMOL/L (136-145)
[2020-06-13 10:00] LABS: COLOR,URINE YELLOW
[2020-06-13 10:03] LABS: ALANINE AMINOTRANSFERASE 83 U/L (12-78); ALBUMIN 4.5 G/DL (3.4-5.0); ALKALINE PHOSPHATASE 98 U/L (46-116); ASPARTATE AMINO TRANSFERASE 43 U/L (15-37); BILIRUBIN,TOTAL 0.5 MG/DL (0.2-1.0)
--- NOTE | 2020-06-13 10:17 | NUR ---
ED Nurse Note: pt taken down to rad for abd CT.
--- NOTE | 2020-06-13 10:27 | NUR ---
ED Nurse Note: pt returned from ct
[2020-06-13] MEDS ORDERED: cefTRIAXone 1 GM in NS 55 ML IVPB ONE (10:45)
[2020-06-13] MEDS ORDERED: CIPROFLOXACIN500 M2 ORAL (10:54)
[2020-06-13 10:59] VITALS: BP 158/85
--- NOTE | 2020-06-13 10:59 | NUR ---
ER DISCHARGE NOTE: Patient is cleared to be discharged per ERMD, pt is aox4, on room air, with stable vital signs. pt was given dc and prescription instructions, pt was able to verbalize understanding, pt id band and iv site removed without complications. pt is able to ambulate with steady gait. pt took all belongings.
--- NOTE | 2020-06-13 11:04 | Diagnostic Imaging Report ---
Indication: Flank pain, dysuria, foul-smelling urine Technique: Spiral acquisitions obtained through the abdomen and pelvis. No oral or IV contrast, per urinary stone protocol. Multiplanar reconstructions were generated. Total dose length product 458 mGycm. CTDIvol(s) 8 mGy. Dose reduction achieved using automated exposure control Comparison: 05/06/2018 Findings: 2 mm calculus is seen in the left renal lower pole. This is not evident previously. No ureteral calculus, hydronephrosis, or hydroureter. No right renal calculi. Lack of IV contrast limits assessment of the renal parenchyma. No gross renal parenchymal mass or cyst demonstrated. No significant perinephric fat stranding. Previously demonstrated right lower pole perinephric fat stranding is no longer evident. The bladder is empty, grossly unremarkable. Likely contrast limits assessment of the other solid organs. The liver demonstrates diffuse low attenuation, consistent with steatosis. This is a new finding. The pancreas, spleen, adrenals are unremarkable. Prominent lymph nodes are seen in the right lower quadrant, also evident previously. No pelvic mass or adenopathy. Uterus and ovaries are unremarkable Normal appendix. No small bowel distention. No free or loculated intraperitoneal gas or fluid is evident. Distal esophagus, stomach, duodenum are unremarkable. The included lung bases demonstrate dependent atelectatic changes posteriorly. The bones are unremarkable. Previously demonstrated subcutaneous buttock fat bubbles are not evident currently Impression: No acute abnormality. Specifically, no evidence of obstructive uropathy Punctate nonobstructive left lower pole calyceal calculus. This is new since prior exam of 2018 Fatty liver. This is a new finding Nonspecific prominent right lower quadrant nodes, also evident on the prior exam The CT scanner at [facility] is accredited by the [employer] and the scans are performed using protocols designed to limit radiation exposure to as low as reasonably achievable to attain images of sufficient resolution adequate for diagnostic evaluation.
== END 2020-06-13 10:59 | disposition home or self-care (01) ==
LOC: EMR 09:07
DX: N12 Tubulo-interstitial nephritis, not specified as acute or chronic (principal); Z88.5 Allergy status to narcotic agent
CPT/HCPCS: 36415; 74176; 80053; 81003; 81025; 83690; 85025; 87086; 87181; 96361; 96372; 96374; 96375; J0696; J1885; J2270; J2405; J7030; Z7502; 99284